=== PATIENT | male | born 1945 | race Caucasian/White ===

== ENCOUNTER 2016-11-12 05:33 | Inpatient (IN) | payer MEDICARE, BC ==
[2016-11-11 09:11] VITALS: BMI 32.5
[2016-11-12] VITALS (23 sets, daily range): BP systolic 122–183; BP diastolic 65–101; PULSE 62–91; RESP 12–20; Ht 175.3 cm; Wt 105.0 kg
[~2016-11-12] VITALS: Ht 175.3 cm; Wt 105.0 kg
[2016-11-12] MEDS ORDERED: BUPIVACAINE 0.5% (SDV) 30 ML, morphine SULFATE (PF) 8 MG, EPINEPHrine 0.3 MG, KETOROLAC... IRR SCH ×7 (06:00)
[2016-11-12] MEDS ORDERED: CEFAZOLIN 2 GM/50 ML (PMX) 50 ML IVPB ONE (06:00)
[2016-11-12] MEDS ORDERED: DEXAMETHASONE 1 MG TAB PO ONE (06:00)
[2016-11-12] MEDS ORDERED: GABAPENTIN 300 MG CAP PO ONE (06:00)
[2016-11-12] MEDS ORDERED: traMADol 50 MG TAB PO ONE (06:00)
[2016-11-12] MEDS ORDERED: TRANEXAMIC ACID 1,000 MG in SOD CHLORIDE 0.9% 100 ML IVPB ONE (06:00)
[2016-11-12] MEDS ORDERED: oxyCODONE (CR) 10 MG TAB [oxyCONTIN] PO ONE (06:00)
[2016-11-12] MEDS ORDERED: POLYMYXIN/BACITRACIN 1L IRRIG ONE (06:39)
[2016-11-12] MEDS ORDERED: THROMBIN 5000 UNIT VIAL ONE (06:39)
[2016-11-12] MEDS ORDERED: CA CHLORIDE 10% 10 ML SYRINGE ONE (06:39)
[2016-11-12] MEDS ORDERED: BUPIVACAINE 0.25%/EPI (SDV) 30 ML INJ ONE (06:39)
[2016-11-12] MEDS ORDERED: BUPIVACAINE 0.5%/EPI (SDV) 30 ML INJ ONE (06:41)
--- NOTE | 2016-11-12 06:46 | HPN ---
Date/Time of Note Date/Time of Note DATE: 11/12/16 TIME: 06:46 Interval H&P Admission Note Pt. seen H&P reviewed: No system changes LUCERO CORRALES MD Nov 12, 2016 06:46
[2016-11-12] MEDS ORDERED: MIDAZOLAM 1 MG/ML 2 ML INJ ONE (06:57)
[2016-11-12] MEDS ORDERED: ROPIVACAINE 0.5 % 30 ML VIAL ONE (06:57)
[2016-11-12] MEDS ORDERED: FENTAnyl 50 MCG/ML VIAL ONE (06:57)
[2016-11-12] MEDS ORDERED: ACETAMINOPHEN 1000 MG/100 ML IVPB ONE (07:00)
[2016-11-12] MEDS ORDERED: LIDOCAINE 2% (SDV) 5 ML INJ ONE (07:01)
[2016-11-12] MEDS ORDERED: HEPARIN 1000 UNITS/NS (A-LINE) 0 ML ONE (07:01)
[2016-11-12] MEDS ORDERED: EZET10TA3 PO (07:14)
[2016-11-12] MEDS ORDERED: RIVA20TA PO (07:14)
[2016-11-12] MEDS ORDERED: AMIO200T2 PO (07:14)
[2016-11-12] MEDS ORDERED: ATOR40TA68 PO (07:14)
[2016-11-12] MEDS ORDERED: ASPI81TA3 PO (07:14)
[2016-11-12] MEDS ORDERED: CARV80CP5 PO (07:14)
[2016-11-12] MEDS ORDERED: BENA20TA48 PO (07:14)
[2016-11-12] MEDS ORDERED: PROPOFOL 20 ML ONE (07:15)
[2016-11-12] MEDS ORDERED: SUCCINYLCHOLINE CHLORIDE 100 MG/5 ML SYG IV ONE (07:15)
[2016-11-12] MEDS ORDERED: CEFAZOLIN 1 GM INJ ONE (07:26)
[2016-11-12] MEDS ORDERED: DEXAMETHASONE 4 MG/ML 1 ML INJ ONE (07:31)
[2016-11-12] MEDS ORDERED: ONDANSETRON 4 MG INJ ONE (07:31)
[2016-11-12] MEDS ORDERED: PHENYLephrine (100 MCG/ML) 5ML SYG ONE ×4 (07:31→08:08)
[2016-11-12] MEDS ORDERED: FAMOTIDINE 20 MG INJ ONE (07:31)
[2016-11-12] MEDS ORDERED: GLYCOPYRROLATE 0.4 MG INJ ONE (08:40)
[2016-11-12] MEDS ORDERED: NEOSTIGMINE 3 MG/3 ML SYRINGE ONE (08:40)
[2016-11-12] MEDS ORDERED: hydrALAzine 20 MG INJ IV PRN (09:00)
[2016-11-12] MEDS ORDERED: HYDROmorphONE (0.2 MG/ML) 10ML SYG IV PRN ×2 (09:00)
[2016-11-12] MEDS ORDERED: PROCHLORPERAZINE 10 MG INJ IV PRN (09:00)
[2016-11-12] MEDS ORDERED: DIPHENHYDRAMINE 50 MG INJ IV PRN ×2 (09:00→09:30)
[2016-11-12] MEDS ORDERED: ONDANSETRON 4 MG INJ IV PRN ×2 (09:00→09:30)
[2016-11-12] MEDS ORDERED: LABETALOL HCL 20MG INJ IV PRN (09:00)
[2016-11-12] MEDS ORDERED: MEPERIDINE 25 MG INJ IV PRN (09:00)
[2016-11-12] MEDS ORDERED: TRANEXAMIC ACID 1,000 MG in SOD CHLORIDE 0.9% 100 ML IV ONE (09:30)
[2016-11-12] MEDS ORDERED: ACETAMINOPHEN 500 MG TAB PO PRN (09:30)
[2016-11-12] MEDS ORDERED: ZOLPIDEM 5 MG TAB PO PRN (09:30)
[2016-11-12] MEDS ORDERED: MAGNESIUM HYDROXIDE 30ML CUP PO PRN (09:30)
[2016-11-12] MEDS ORDERED: OXYCODONE/ACETAMINOPHEN (5/325) TAB PO PRN ×2 (09:30)
[2016-11-12] MEDS ORDERED: morphine 4 MG/ML VIAL IV PRN (09:30)
[2016-11-12] MEDS ORDERED: KETOROLAC 15 MG INJ IV PRN (09:30)
[2016-11-12] MEDS: CEFAZOLIN 1 GM/50 ML (PMX) 50 ML IVPB SCH ×2 (10:14→16:54)
[2016-11-12] MEDS ORDERED: hydrALAzine 20 MG INJ ONE (10:25)
--- NOTE | 2016-11-12 10:29 | RADRPT ---
PROCEDURE: XR left Shoulder. CLINICAL INDICATION: Postoperative evaluation TECHNIQUE: 2 views of the left shoulder are available for review. COMPARISON: None available FINDINGS: There is a reverse left shoulder total arthroplasty in anatomic alignment with overlying soft tissu e swelling and soft tissue gas. A left-sided cardiac pacing device is noted. There is mild vascula r congestion suggested in the left lung. IMPRESSION: Reverse left shoulder total arthroplasty in anatomic alignment with overlying soft tissue swelling a nd gas as above. RPTAT: UU .Anurag Garcia MD, MD Date Time Electronically viewed and signed by .Anurag Garcia MD, on 11/12/2016 10:29 .K/
--- NOTE | 2016-11-12 10:31 | OPR ---
DATE OF OPERATION: 11/12/2016 SURGEON: Lucero Martinez MD RUBBER GOODS INSPECTOR TESTER: Zach Erazo MD PREOPERATIVE DIAGNOSIS: Left shoulder status post infection with secondary osteoarthritis. POSTOPERATIVE DIAGNOSES 1. Left shoulder secondary osteoarthritis. 2. Left shoulder massive unrepairable rotator cuff tear. 3. Left shoulder severe synovitis. OPERATION PERFORMED: Left reverse total shoulder replacement. Electric Golf Cart Repairer surgeon, Zach Erazo MD, was asked to be present at my request as a result of the signi ficant surgical complexity associated with this procedure, including positioning of the extremity, m anipulation and protection of the neurovascular structures. In my opinion, the assistance offered b y a surgical appliances salesperson is insufficient and Dr. Erazo should be compensated for his time. PROCEDURE IN DETAIL: Following administration of general endotracheal anesthesia supplemented with a scalene block, the patient was placed in the beach chair position and the left upper extremity was prepped and draped in usual sterile fashion. The previously made deltopectoral incision was then i ncised once again. The subdeltoid plane was entered. Severe adhesions were noted. The subdeltoid plane was then elevated and the rotator cuff was seen to be deficient anteriorly and superiorly. In addition, there was significant, what appeared to be fibrinous tissue with no significant purulence . A portion of the tissue was sent for both culture and pathological analysis. Debridement of the tissue and synovectomy was then performed. The remaining rotator cuff was then debrided and the pos terior cuff was left intact. 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 The glenoid w as also severely eroded. The humeral head cut was then made in the appropriate degree of version an d inclination and retracted. Peripheral glenoid was then cleared of soft tissue with capsulectomy. The central canal was entered and a standard DePuy baseplate was then applied with 4 peripheral scr ews with solid fixation. The 36 mm glenosphere was then applied. The humeral shaft was then reamed and prepared for a 10 mm DePuy device. The actual device with a 6 mm liner was then implanted at 3 0 degrees of retroversion with solid fixation. The joint was taken >through a full range of motion with no instability. Thorough irrigation was then undertaken. The deltopectoral interval was close d in layers, the skin was closed using a Prineo dressing with a watertight closure. The patient was then awakened and transported to recovery in stable condition. Estimated blood loss for the proced ure was 200 mL. Postoperative x-rays will be obtained in the recovery room. Dictated By: LUCERO MORGAN/GWEN Conf#: [id number] DID#: [id number]
[2016-11-12] MEDS ORDERED: hydrALAzine 20 MG INJ IV ONE (11:00)
[2016-11-12] MEDS: DEXAMETHASONE 2 MG TAB PO SCH ×3 (13:44→23:54)
[2016-11-12] MEDS: morphine 2 MG INJ IV PRN ×2 (16:55→23:52)
[2016-11-12] MEDS ORDERED: RIVAROXABAN 20 MG TABLET PO SCH (17:55)
[2016-11-12] MEDS: SENNA/DOCUSATE NA (8.6MG/50MG) TAB PO SCH (20:39)
[2016-11-12] MEDS ORDERED: GABAPENTIN 300 MG CAP PO SCH (21:00)
[2016-11-12] MEDS ORDERED: ATORVASTATIN 40 MG TAB PO SCH (21:00)
[2016-11-13] MEDS: CEFAZOLIN 1 GM/50 ML (PMX) 50 ML IVPB SCH (00:08)
[2016-11-13] MEDS: DEXAMETHASONE 2 MG TAB PO SCH (05:34)
--- NOTE | 2016-11-13 06:32 | PDOCDIS ---
Discharge Instructions DIAGNOSIS Discharge Diagnosis: Shoulder infection with arthritis CONDITION Patient Condition: Good HOME CARE INSTRUCTIONS: Diet Instructions: Regular ACTIVITY: Activity Restrictions: Slowly Increase Activity Keep Limb Elevated Bathing Restrictions: Shower FOLLOW UP/APPOINTMENTS Appointments Two weeks SCHOOL/WORK RELEASE May return to School/Work with: With Restrictions School/Work Release Comment: Five pound table top usage for six weeks LUCERO CORRALES MD Nov 13, 2016 06:32
--- NOTE | 2016-11-13 06:52 | PN ---
Date/Time of Note Date/Time of Note DATE: 11/13/16 TIME: 06:48 24 hour Interval Summary Patient is awake and alert. He had some drainage overnight, when he rolled onto the left arm. PE: Wound with superior area of bloody drainage. Lower 2/3 or Prenio intact. He is NV intact, with no signs of DVT. A: Wound drainage, mild. P: Wound was re-dressed with Mepelex. Patient will remove in three days. Continue PO DOxy. He will be d/c'd after OT this am. Fu in two weeks. Physical Exam Vital Signs Date Time Temp Pulse Resp B/P Pulse Ox O2 Delivery O2 Flow Rate FiO2 11/12/16 23:50 98.0 82 20 125/67 93 11/12/16 15:35 Nasal Cannula 2.0 Intake and Output 11/12/16 11/12/16 11/13/16 15:00 23:00 07:00 Intake Total 1300 ml 570 ml 50 ml Output Total 300 ml 920 ml Balance 1000 ml -350 ml 50 ml VTE Prophylaxis VTE Prophylaxis Intervention: anti-embolic stocking Lines/Catheters IV Catheter Type: Saline Lock Robertson in Place: No Medications Medications Home Meds Reported Medications Aspirin* (Aspirin* Chew) 81 Mg Tab.chew, 81 MG PO DAILY, TAB.CHEW 11/12/16 Benazepril Hcl* (Benazepril Hcl*) 20 Mg Tablet, 20 MG PO DAILY, #30 TAB 11/12/16 Atorvastatin* (Atorvastatin*) 40 Mg Tablet, 40 MG PO QHS, #30 TAB 11/12/16 Ezetimibe* (Zetia*) 10 Mg Tablet, 10 MG PO DAILY, TAB 11/12/16 Rivaroxaban* (Xarelto*) 20 Mg Tablet, 20 MG PO WITH DINNER, TAB 11/12/16 Amiodarone Hcl* (Amiodarone Hcl*) 200 Mg Tablet, 200 MG PO DAILY, #30 TAB 11/12/16 Carvedilol* (Coreg CR*) 80 Mg Cpmp.24hr, 80 MG PO DAILY, #30 CAP 11/12/16 LUCERO CORRALES MD Nov 13, 2016 06:52
--- NOTE | 2016-11-13 06:53 | DS ---
Date/Time of Note Date/Time of Note DATE: 11/13/16 TIME: 06:52 Discharge Summary Admission/Discharge Info Admit Date/Time Nov 12, 2016 at 05:33 Discharge Date/Time 11/13/2016 after OT Final Diagnosis Shoulder infection with secondary arthritis Patient Condition: Good Procedures Reverse total shoulder Hx of Present Illness Pain after infected shoulder, chronic Hospital Course Admitted and underwent uncomplicated procedure. OT in Am, then home to be followed up in two weeks Home Meds Reported Medications Aspirin* (Aspirin* Chew) 81 Mg Tab.chew, 81 MG PO DAILY, TAB.CHEW 11/12/16 Benazepril Hcl* (Benazepril Hcl*) 20 Mg Tablet, 20 MG PO DAILY, #30 TAB 11/12/16 Atorvastatin* (Atorvastatin*) 40 Mg Tablet, 40 MG PO QHS, #30 TAB 11/12/16 Ezetimibe* (Zetia*) 10 Mg Tablet, 10 MG PO DAILY, TAB 11/12/16 Rivaroxaban* (Xarelto*) 20 Mg Tablet, 20 MG PO WITH DINNER, TAB 11/12/16 Amiodarone Hcl* (Amiodarone Hcl*) 200 Mg Tablet, 200 MG PO DAILY, #30 TAB 11/12/16 Carvedilol* (Coreg CR*) 80 Mg Cpmp.24hr, 80 MG PO DAILY, #30 CAP 11/12/16 LUCERO CORRALES MD Nov 13, 2016 06:53
[2016-11-13 08:01] VITALS: BP 135/63; RESP 18
[2016-11-13] MEDS: SENNA/DOCUSATE NA (8.6MG/50MG) TAB PO SCH (08:36)
[2016-11-13] MEDS ORDERED: EZETIMIBE 10 MG TAB PO SCH (09:00)
[2016-11-13] MEDS ORDERED: CARVEDILOL (CR) 80 MG CAP PO SCH (09:00)
[2016-11-13] MEDS ORDERED: ASPIRIN 81 MG TAB PO SCH (09:00)
[2016-11-13] MEDS ORDERED: BENAZEPRIL 20 MG TAB PO SCH (09:00)
[2016-11-13] MEDS ORDERED: AMIODARONE 200 MG TAB PO SCH (09:00)
== END 2016-11-13 10:20 | disposition home or self-care (01) | DRG 483 ==
LOC: REC 05:33 → EDSEX 05:33 → MS1 12:40
PROVIDERS: ADMIT Orthopaedic Surgery; ATTEND Orthopaedic Surgery
PROC: 0RRK00Z Replacement of Left Shoulder Joint with Reverse Ball and Socket Synthetic Substitute, Open Approach (ICD-10-PCS; principal; 2016-11-12 07:00)
DX: M19.212 Secondary osteoarthritis, left shoulder (principal); M75.102 Unspecified rotator cuff tear or rupture of left shoulder, not specified as traumatic; M65.812 Other synovitis and tenosynovitis, left shoulder
CPT/HCPCS: 73030; 86999; 87070; 87102; 87116; 97163; C1776; J0131; J0171; J0330; J0360; J0690; J0735; J1100; J1644; J1885; J2250; J2270; J2274; J2370; J2405; J2710; J2795; J3010; J3370